=== PATIENT | male | born 1980 | race Caucasian/White ===

== ENCOUNTER 2019-04-07 16:30 | Emergency (ER) | payer BC, SELFPAY ==
[2019-04-07 17:00] VITALS: BP 143/82; PULSE 116; RESP 20; TEMP 38.4; O2SAT 98
--- NOTE | 2019-04-07 17:11 | ED.GENADULT ---
HPI - General Adult General Chief complaint: Upper Respiratory Infection Stated complaint: lower back pn/cough/sob Time Seen by Provider: 04/07/19 17:36 Source: patient and RN notes reviewed Mode of arrival: ambulatory Limitations: no limitations History of Present Illness HPI narrative: 38-year-old male presents with complaints of body aches, fever, wheezing, and sore throat for 1 day. Tylenol without little relief. High fevers, highest 101.2F, orally with intermittent chills. drooling, neck or throat swelling. Pain is bilateral. Hurts to swallow. Exacerbation factors consist of eating and drinking. Rhinorrhea and nasal congestion. No voice change. No nausea, vomiting, or abdominal pain. Tolerating liquids well. Denies chills, dyspnea, difficulty swallowing, jaw pain, dental pain, facial pain, foreign body sensation, and rash. Remains active. Some parts of this dictation were generated by voice recognition software and may contain typographical and/or grammatical inaccuracies. Related Data Home Medications Medication Instructions Recorded Confirmed meloxicam 15 mg PO DAILY 04/07/19 04/07/19 Allergies Allergy/AdvReac Type Severity Reaction Status Date / Time No Known Allergies Allergy Unknown Verified 04/07/19 17:05 Review of Systems Review of Systems: Narrative: CONSTITUTIONAL: Complains of fever, chills. Denies sweats. EYES: Denies visual changes, redness, discharge. ENT: Denies otalgia. Complains of sore throat, rhinorrhea, congestion. CARDIOVASCULAR: Denies chest pain, palpitations, edema. RESPIRATORY: Denies dyspnea. Complains of wheezing, dry cough. GASTROINTESTINAL: Denies abdominal pain, nausea, vomiting, diarrhea. GENITOURINARY: Denies dysuria, hematuria, abnormal discharge. SKIN: Denies rash or itching. MUSCULOSKELETAL: Denies acute back pain, joint pain. Complains of myalgia. NEUROLOGIC: Denies numbness or focal weakness. PSYCHIATRIC: Denies anxiety or depression. All systems reviewed & are unremarkable except as noted in HPI and below. [facility] Past Medical History Medical History ADHD (attention deficit hyperactivity disorder), inattentive type Chronic nonallergic rhinitis Chronic thoracic back pain Right lateral epicondylitis Right ureteral stone Surgical History Surgical History History of umbilical hernia repair Family History Family History Mother Family history of osteoporosis Hypertension Father Family history of attention deficit hyperactivity disorder (ADHD) Social History Social History Smoking status: Never smoker Second hand tobacco smoke exposure: No Alcohol intake: never Gender identity (if verbalized by the patient): Male Comments At time of signature, agree with nurse past medical, surgical, social, and family history. There is no relevant family history pertinent to the presenting complaint. Exam Narrative: Exam Narrative: GENERAL: This is a well-nourished, well-developed patient, in no apparent distress. Speaks in full sentences without deficits and ambulates with steady gait without dyspnea. HEAD: normocephalic, atraumatic. EYES: PERRL. Sclera clear/white. Vision is grossly intact. EARS: External ears normal, auditory canals clear and without drainage, TMs normal without perforation. Hearing grossly intact. NOSE: External nose normal with no obvious nasal discharge, nares with moderate redness and enlarge turbinates, no rhinorrhea. Mouth: moist mucous membranes. THROAT: Mucous membranes moist, posterior pharynx with moderate erythema, no exudatel, +1 tonsils, no drainage, no concern for Peritonsillar abscess. No drooling, trismus, or neck swelling. NECK: Neck supple, non-tender without lymphadenopathy, masses or thyromegaly.
[2019-04-07] MEDS: IBUPROFEN 400 MG TABLET 800 MG PO (17:34)
[2019-04-07 18:01] VITALS: TEMP 38.3
== END 2019-04-07 17:59 | disposition home or self-care (01) ==
PROVIDERS: Emergency Provider Nurse Practitioner Family; PCP Family Medicine
DX: J02.0 Streptococcal pharyngitis (principal)
CPT/HCPCS: 87804; 87880; 99213; A9270; G0463

== ENCOUNTER 2019-12-04 07:53 | Outpatient (CLI) | payer BC, SELFPAY ==
--- NOTE | 2019-12-24 14:50 | WPDHOMESLEEP ---
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 Sleep History Papo Faustin is a 39 tear-old male with ADHD who has been using Ambien for years to improve sleep quality. He does not take it currently. He has work schedule changes that worsen his quality of sleep. He wakes up during the night and has excessive daytime sleepiness. He constantly snores and it is always loud enough that others complain about it. He occasionally awakens at night with heartburn, belching or coughing. He does not awaken from sleep feeling short of breath. He constantly has trouble sleeping with a cold. He does not wake up gasping for breath at night. He frequently has breathing problems at night reported to him by others, occasionally sweats excessively at night, rarely feels his heart beating or pounding irregularly at night and rarely falls asleep during the day. He does not fall asleep involuntarily or while driving. He does not fall asleep during physical effort. He does not have loss of muscle tone with strong emotion. He occasionally has daytime difficulties due to excessive sleepiness. He rarely feels paralyzed on waking or falling asleep. He occasionally has vivid dreamlike scenes upon awakening or falling asleep. He has never for a to go to sleep. He denies nightmares. He occasionally remembers his dreams. He rarely has racing thoughts. He does not have feelings of sadness, depression or anxiety. He denies muscular tension, does not notice parts of his body jerking and he does not kick at night. He occasionally has crawling and aching feelings in his legs. He rarely has leg pain at night. He denies morning jaw pain and denies grinding his teeth during sleep. He constantly is bothered by pain during the day. Never is awakened by pain at night. He constantly wakes up feeling stiff in the morning with sore achy muscles and pain in the neck and spine. He has fatigue, headaches and memory problems. He has a family history of sleep issues with his father also has excessive daytime sleepiness. Normal bedtime is 10:30 p.m. falling asleep within 20-30 minutes, waking 2-3 times during the night. While awake he uses the bathroom. He returns to sleep within a few minutes and wakes in the morning at 6:45 a.m.. He estimates that he normally has 6-7 hours of sleep at night. On the weekends goes to bed an hour later and wakes about an hour later. He does not take naps. Naps are not refreshing. He is drowsy in the morning for 1 hour or longer. Habits: Never smoked tobacco. Caffeine 1 serving per day. No alcohol or recreational drugs. [facility] Past Medical History Medical History ADHD (attention deficit hyperactivity disorder), inattentive type Chronic nonallergic rhinitis Chronic thoracic back pain Encounter for screening for other viral diseases Oral candidiasis Right lateral epicondylitis Right ureteral stone Surgical History Surgical History History of umbilical hernia repair Family History Family History Mother Family history of osteoporosis Hypertension Father Family history of attention deficit hyperactivity disorder (ADHD) Social History Social History Smoking status: Never smoker Second hand tobacco smoke exposure: No Alcohol intake: never Gender identity (if verbalized by the patient): Male Medications Home Medications Medication Instructions Recorded C
== END 2019-12-04 07:54 | disposition home or self-care (01) ==
LOC: ANHCSM 07:54
PROVIDERS: PCP Family Medicine; Visit Provider Family Medicine
DX: G47.10 Hypersomnia, unspecified (principal); G47.33 Obstructive sleep apnea (adult) (pediatric)
CPT/HCPCS: 95800

== ENCOUNTER 2020-02-18 20:33 | Emergency (ER) | payer BC, SELFPAY ==
--- NOTE | ~2020-02-18 | CT_ITS ---
EXAMINATION: CT abdomen pelvis wo con DATE: 02/18/2020 21:10 INDICATION: Renal stone. Left flank pain. TECHNIQUE: Computed tomography (CT) of the abdomen and pelvis was performed without intravenous contr ast. Automated exposure control and iterative reconstruction technique were employed. The dose-length product was 1484.42 mGy-cm. COMPARISON: 06/27/2015 FINDINGS: Lung bases are clear. Heart size is normal. No pericardial or pleural effusion. Liver, gallbladder, s pleen, pancreas, right adrenal gland and right kidney are normal. 2.5 cm low-attenuation left adrenal adenoma. 2 mm obstructing stone at the left ureterovesicular junction with mild left hydroureteronep hrosis. There is mild colonic diverticulosis with a sigmoid predominance. There is no adjacent infla mmatory change to suggest diverticulitis. Small bowel and appendix are normal. Decompressed bladder is unremarkable. No free intraperitoneal gas or fluid. No pathologically enlarged abdominal or pelvic lymphadenopathy. Mild thoracolumbar spondylosis. A few small bone islands in the pelvis and proximal femurs. IMPRESSION: 1. 2 mm stone at the left ureterovesicular junction with mild left hydroureteronephrosis. Reviewed, dictated and finalized at location A. [employer] IMPRESSION: 1. 2 mm stone at the left ureterovesicular junction with mild left hydrouretero nephrosis.
[2020-02-18 20:37] VITALS: BP 139/87; PULSE 84; RESP 16; TEMP 36.6; O2SAT 96
[2020-02-18 20:53] LABS: Basophils Absolute Auto 0.1 K/mm3 (0.0-0.1); Basophils Percent Auto 0.8 % (0.2-1.2); Eosinophils Absolute Auto 0.1 K/mm3 (0-0.3); Eosinophils Percent Auto 0.9 % (0-4.4); Hematocrit 42.1 % (42.0-52.0); Hemoglobin 14.4 g/dL (14.0-18.0); Immature Granulocyte Absolute 0.05 K/mm3 (0.00-0.031); Immature Granulocyte Percent A 0.4 % (0-0.5); Lymphocytes Absolute Auto 4.61 K/mm3 (0.9-3.2); Lymphocytes Percent Auto 40.6 % (18.3-44.2); Mean Corpuscular HGB Conc 34.2 g/dl (32-36); Mean Corpuscular Hemoglobin 29.7 pg (26-34); Mean Corpuscular Volume 86.8 fl (80-100); Mean Platelet Volume 9.7 fl (7.4-10.4); Monocytes Absolute Auto 0.6 K/mm3 (0.1-0.6); Monocytes Percent Auto 5.5 % (2.6-8.5); Neutrophils Absolute Auto 5.9 K/mm3 (1.3-6.7); Neutrophils Percent Auto 51.8 % (45.5-73.1); Platelet Count Result 429 k/mm3 (150-375); Red Blood Count 4.85 M/mm3 (4.6-6.20); Red Cell Distribution Width 13.1 % (11.5-14.5); White Blood Count 11.4 K/mm3 (4.5-10.0)
[2020-02-18 21:04] LABS: Anion Gap 6 mmol/L (8-16); Blood Urea Nitrogen 32 mg/dL (9-20); Carbon Dioxide 31 mmol/L (22-30); Chloride 102 mmol/L (98-107); Estimated CRCL calculation 71 ml/min; Estimated Glomerular Filt Rate 46; Glucose 119 mg/dL (75-110); Potassium 4.1 mmol/L (3.4-5.0); Sodium 139 mmol/L (137-145)
[2020-02-18] MEDS: HYDROmorphone HCL INJ (*CRX) 1 MG/ML SYR IV PUSH ×2 (21:19→23:09)
[2020-02-18] MEDS: SODIUM CHLORIDE 0.9% IV 1,000 ML 999 ML ×2 (21:19→22:33)
[2020-02-18] MEDS: ONDANSETRON INJ 4 MG/2 ML VIAL IV PUSH (21:19)
[2020-02-18] MEDS: KETOROLAC 30 MG/ML VIAL (*BKC) (22:00)
--- NOTE | 2020-02-18 22:00 | PC.NURSE ---
[place] to give pt toradol 30 mg ivp x1 from dr tao
[2020-02-18] MEDS: HYDROmorphone HCL INJ (*CRX) 1 MG/ML SYR (22:33)
--- NOTE | 2020-02-18 22:33 | PC.NURSE ---
shay to give pt dilaudid 1mg ivp x1 and also NS 1L X1 BOTH FROM DR VALERO
[2020-02-18 22:49] LABS: Add Urine Microscopic? YES; Appearance Urine Clear (Clear); Bilirubin Urine Negative (Negative); Blood Urine 3+ (Negative); Color Urine Yellow (Yellow); Glucose Urine UA Negative (Negative); Ketones Urine Negative (Negative); Leukocyte Esterase Ur Negative LEU/UL (Negative); Mucus Urine Few /lpf; Nitrate Urine Negative (Negative); Protein Urine 1+ mg/dL (Negative); RBC Urine >75 /hpf (0-2); Specific Grav Ur 1.027 (1.001-1.035); Squamous Epithelial Cell Urine Rare /hpf (Few); Urobilinogen Urine Negative mg/dL (<2.0); WBC Urine 0-3 /hpf
[2020-02-18] MEDS: LORazepam INJ (*CRX) 2 MG/ML VIAL 0.5 MG IV PUSH (23:09)
--- NOTE | 2020-02-18 23:24 | ED.ABDPAIN ---
HPI - Abdominal Pain General Chief Complaint: Urogenital-Male Stated Complaint: I might have a kidney stone Left flank pain Time Seen by Provider: 02/18/20 20:51 Source: patient and family Mode of arrival: ambulatory Limitations: no limitations History of Present Illness HPI narrative: 39-year-old with a history of kidney stones here with complaints of left flank pain since last few hours. Patient states that pain is going down to his lower abdomen. Also complains of nausea but no significant vomiting. No history of fever or chills. MD elicited complaint: abdominal pain and flank pain Pertinent past history: kidney stones Onset (ago): hour(s) (2) Pain Consistency: constant Location: L flank and suprapubic Severity: moderate Quality: stabbing and sharp Radiation: suprapubic Exacerbating factors: nothing Relieving factors: nothing Related Data Allergies Allergy/AdvReac Type Severity Reaction Status Date / Time No Known Allergies Allergy Unknown Verified 04/07/19 17:05 Review of Systems Review of Systems: All systems reviewed & are unremarkable except as noted in HPI and below Constitutional: Constitutional: Reports no additional constitutional complaints Eyes: Eyes: Reports no additional eye complaints ENT: Reports system reviewed and no additional complaints, except as documented Cardiovascular: Cardiovascular: Reports no additional cardiovascular complaints Respiratory: Respiratory: Reports no additional respiratory complaints Gastrointestinal: Gastrointestinal: Reports as per HPI Genitourinary: Genitourinary: Reports as per HPI Musculoskeletal: Musculoskeletal: Reports no additional musculoskeletal complaints PMFSH Past Medical History Medical History ADHD (attention deficit hyperactivity disorder), inattentive type BMI 32.0-32.9,adult Chronic nonallergic rhinitis Chronic right shoulder pain Chronic thoracic back pain COVID-19 (01/02/20) Encounter for screening for other viral diseases Migraine headache without aura Obesity, unspecified (07/21/16) Oral candidiasis Right lateral epicondylitis Right ureteral stone Surgical History Surgical History History of umbilical hernia repair Family History Family History Mother Family history of osteoporosis Hypertension Father Family history of attention deficit hyperactivity disorder (ADHD) Social History Social History Smoking status: Never smoker Second hand tobacco smoke exposure: No Alcohol intake: never Gender identity (if verbalized by the patient): Male Exam Narrative: Exam Narrative: GENERAL: Well-appearing, well-nourished, and in mild distresssec to pain HEAD: Normocephalic, atraumatic. EYES: PERRLA and EOMI.. NECK: Supple. CHEST: Clear to auscultation. No respiratory distress. HEART: Regular rate and rhythm. No murmur heard. Normal peripheral pulses. ABDOMEN: Soft, nontender, nondistended, normal active bowel sounds. EXTREMITIES: Normal range of motion. No edema. SKIN: Warm, dry, no rash. NEURO: No focal deficits. Alert and oriented x3. PSYCH: Normal mood and affect. Course Course Emergency Course: Patient started feeling much better after several rounds of pain medication and Ativan. I have discussed the labs and CT findings with the patient and his . Advised him to drink plenty of fluids take pain medication as prescribed, follow-up with his primary doctor or urologist if symptoms do recur. Vital Signs Vital signs: Vital Signs Temperature 36.6 C 02/18/20 20:37 Pulse Rate 84 02/18/20 20:37 Respiratory Rate 16 02/18/20 20:37 Blood Pressure 139/87 02/18/20 20:37 Pulse Oximetry 96 02/18/20 20:37 Temperature 36.6 C 02/18/20 20:37 Pulse Rate 84 02/18/20 20:37 Respiratory Rate 1
[2020-02-18 23:53] VITALS: BP 130/81; PULSE 81; RESP 16; O2SAT 100
== END 2020-02-18 23:56 | disposition home or self-care (01) ==
PROVIDERS: Emergency Medicine; Emergency Provider Family Medicine; PCP Family Medicine
DX: N13.2 Hydronephrosis with renal and ureteral calculous obstruction (principal); Z86.16 Personal history of COVID-19; E66.9 Obesity, unspecified; Z68.32 Body mass index [BMI] 32.0-32.9, adult
CPT/HCPCS: 36415; 74176; 80048; 81001; 85025; 96361; 96374; 96375; 96376; 99284; J1170; J1885; J2060; J2405; J7030

== ENCOUNTER 2021-01-03 10:27 | Emergency (ER) | payer BC, SELFPAY ==
--- NOTE | ~2021-01-03 | US_ITS ---
EXAMINATION: US right upper quadrant EXAM DATE: 01/03/2021 13:15 INDICATION: Abdominal pain, right upper quadrant pain. TECHNIQUE: Multiple grayscale and Doppler images of the abdomen right upper quadrant were obtained (b y a technologist who performed the scan) and subsequently reviewed. There is no prior study for brenda overton. FINDINGS: The pancreatic head and body are normal in appearance. The pancreatic tail is not visualized. The l iver has normal echogenicity and contour. There are no focal liver lesions identified. There is no evidence of intrahepatic biliary duct dilation. Portal venous flow was seen in the hepatopedal, nor mal direction and has normal Doppler waveform. No right-sided hydronephrosis. Common bile duct measures 4 mm, which is normal. The gallbladder wall is normal in thickness, with ex pected amount of distention. No sonographic evidence of pericholecystic fluid. There is no cholelit hiases. Technologist performing exam reports patient did not demonstrate sonographic Mejia's sign. Please note that this sign is less reliable in patients who have received pain medication. IMPRESSION: 1. Unremarkable abdominal ultrasound exam. Reviewed, dictated and finalized at location A. SEWER
[2021-01-03 11:28] VITALS: BP 140/89; PULSE 104; RESP 17; TEMP 36.6; O2SAT 99
[2021-01-03 11:45] LABS: Basophils Absolute Auto 0.1 K/mm3 (0.0-0.1); Basophils Percent Auto 0.5 % (0.2-1.2); Eosinophils Percent Auto 0.4 % (0-4.4); Hematocrit 45.4 % (42.0-52.0); Hemoglobin 15.3 g/dL (14.0-18.0); Immature Granulocyte Absolute 0.02 K/mm3 (0.00-0.031); Immature Granulocyte Percent A 0.2 % (0-0.5); Lymphocytes Absolute Auto 2.34 K/mm3 (0.9-3.2); Lymphocytes Percent Auto 25.5 % (18.3-44.2); Mean Corpuscular HGB Conc 33.7 g/dl (32-36); Mean Platelet Volume 9.5 fl (7.4-10.4); Monocytes Absolute Auto 0.5 K/mm3 (0.1-0.6); Monocytes Percent Auto 5.9 % (2.6-8.5); Neutrophils Absolute Auto 6.2 K/mm3 (1.3-6.7); Neutrophils Percent Auto 67.5 % (45.5-73.1); Platelet Count Result 315 k/mm3 (150-375); White Blood Count 9.2 K/mm3 (4.5-10.0)
[2021-01-03 11:55] LABS: Add Urine Microscopic? YES; Appearance Urine Clear (Clear); Bilirubin Urine Negative (Negative); Blood Urine 1+ (Negative); Color Urine Yellow (Yellow); Glucose Urine UA Negative (Negative); Ketones Urine Negative (Negative); Leukocyte Esterase Ur Negative LEU/UL (Negative); Mucus Urine Rare /lpf; Nitrate Urine Negative (Negative); Protein Urine Negative (Negative); RBC Urine 0-2 /hpf (0-2); Urobilinogen Urine Negative mg/dL (<2.0)
[2021-01-03 11:57] LABS: Alanine Aminotransferase 38 U/L (4-50); Albumin Level 4.4 g/dL (3.5-5.1); Alkaline Phosphatase 55 U/L (38-126); Anion Gap 7 mmol/L (8-16); Aspartate Amino Transferase 32 U/L (17-59); Bilirubin,Total 0.3 mg/dL (0.2-1.3); Blood Urea Nitrogen 14 mg/dL (9-20); Calcium 9.3 mg/dL (8.4-10.2); Carbon Dioxide 28 mmol/L (22-30); Chloride 99 mmol/L (98-107); Estimated CRCL calculation 114 ml/min; Estimated Glomerular Filt Rate > 60; Glucose 95 mg/dL (65-110); Lipase 34 U/L (23-300); Potassium 4.1 mmol/L (3.4-5.0); Sodium 134 mmol/L (137-145)
--- NOTE | 2021-01-03 13:35 | ED.GENADULT ---
HPI - General Adult General Chief complaint: Abdominal Pain Stated complaint: Lowerback/abdominal pain. Time Seen by Provider: 01/03/21 12:04 History of Present Illness HPI narrative: Patient is a 40-year-old male who presents the ER with abdominal pain. Ongoing for last couple days. Bloating and cramping. Worse with eating. Reports he has lost stomach acid that goes up into his chest. Occasionally has nausea but no vomiting. Reports he has history of kidney stones and he thought it may be related to stones however the symptoms are not nearly as intense as his kidney stone discomfort. He does report some mid low back discomfort associated with this. No recent injury. No relief with ibuprofen. Related Data Allergies Allergy/AdvReac Type Severity Reaction Status Date / Time No Known Allergies Allergy Unknown Verified 04/07/19 17:05 Review of Systems Review of Systems: All systems reviewed & are unremarkable except as noted in HPI and below Constitutional: Constitutional: Denies chills, Denies fever(s) and Denies weakness ENT: Denies nasal congestion and Denies sore throat Cardiovascular: Cardiovascular: Denies chest pain, Denies rapid heart rate and Denies radiating jaw, neck or arm pain Gastrointestinal: Gastrointestinal: Reports abdominal pain, Reports bloating, Reports heartburn, Reports nausea and Denies vomiting Genitourinary: Genitourinary: Denies hematuria, Denies dysuria and Denies urinary frequency [facility] Past Medical History Medical History (Updated 01/03/21 @ 13:39 by Orlin Arceo MD) Abnormal fasting glucose ADHD (attention deficit hyperactivity disorder), inattentive type BMI 31.0-31.9,adult BMI 32.0-32.9,adult Chronic anxiety (~09/2020) Chronic nonallergic rhinitis Chronic right shoulder pain Chronic thoracic back pain COVID-19 (01/02/20) Encounter for screening for other viral diseases Leukocytosis Migraine headache without aura Obesity, unspecified (07/21/16) Oral candidiasis Renal insufficiency Right lateral epicondylitis Ureteral stone Surgical History Surgical History History of umbilical hernia repair Family History Family History Mother Family history of osteoporosis Hypertension Father Family history of attention deficit hyperactivity disorder (ADHD) Social History Social History Smoking status: Never smoker Second hand tobacco smoke exposure: No Alcohol intake: never Gender identity (if verbalized by the patient): Male Exam Narrative: GENERAL: Well-appearing, well-nourished, and in no acute distress. HEAD: Normocephalic, atraumatic. CHEST: Clear to auscultation. No respiratory distress. HEART: Regular rate and rhythm. Normal peripheral pulses. ABDOMEN: Soft, nontender, nondistended. No CVA tenderness. EXTREMITIES: Normal range of motion. No edema. SKIN: Warm, dry, no rash. NEURO: Alert and oriented x3. PSYCH: Normal mood and affect. Course Course Emergency Course: Exam benign. Labs unremarkable. No cholelithiasis. Will treat as peptic ulcer with Protonix 40 mg twice daily x14 days. Recommend follow-up with PCP and possible referral to GI if symptoms persist. Vital Signs Vital signs: Vital Signs Temperature 97.8 F 01/03/21 11:28 Pulse Rate 104 H 01/03/21 11:28 Respiratory Rate 17 01/03/21 11:28 Blood Pressure 140/89 01/03/21 11:28 Pulse Oximetry 99 01/03/21 11:28 Temperature 97.8 F 01/03/21 11:28 Pulse Rate 104 H 01/03/21 11:28 Respiratory Rate 17 01/03/21 11:28 Blood Pressure 140/89 01/03/21 11:28 Pulse Oximetry 99 01/03/21 11:28 Medical Decision Making Vital Signs Vital Signs: Vital Signs Temperature 97.8 F 01/03/21 11:28 Pulse Rate 104 H 01/03/21 11:28 Respiratory Rate 17 01/03/21 11:28 Blood Pressure 140/89 01/03/21 11:28 Puls
[2021-01-03 13:53] VITALS: BP 126/84; PULSE 98; RESP 18; O2SAT 98
== END 2021-01-03 13:55 | disposition home or self-care (01) ==
PROVIDERS: Emergency Medicine; Emergency Provider Emergency Medicine; PCP Family Medicine
DX: R10.13 Epigastric pain (principal); Z86.16 Personal history of COVID-19; N28.9 Disorder of kidney and ureter, unspecified; F90.9 Attention-deficit hyperactivity disorder, unspecified type; F41.9 Anxiety disorder, unspecified; E66.9 Obesity, unspecified; Z68.31 Body mass index [BMI] 31.0-31.9, adult; Z87.442 Personal history of urinary calculi
CPT/HCPCS: 36415; 76705; 80053; 81001; 83690; 85025; 99284

== ENCOUNTER → 2021-04-05 02:04 | Outpatient (CLI) | payer BC, SELFPAY ==
[2021-04-05 14:41] LABS: SARS-CoV-2 RNA PCR Negative
== END ==
PROVIDERS: PCP Family Medicine; Visit Provider Internal Medicine Gastroenterology
DX: Z01.812 Encounter for preprocedural laboratory examination (principal); Z20.822 Contact with and (suspected) exposure to COVID-19
CPT/HCPCS: C9803; U0003; U0005

== ENCOUNTER 2021-04-08 02:29 | Day surgery (SDC) | payer BC, SELFPAY ==
[2021-03-31 08:30] VITALS: BMI 30.8
--- NOTE | 2021-04-07 13:45 | WPDANESEPP ---
Anes - Eval Pre Procedure Procedure: Operation Date: 04/08/21 10:30 Proposed Procedures p Esophagogastroduodenoscopy - Dread Gold MD Date/Time: 04/07/21 13:45 Pre Op Diagnosis: GERD Patient Data Age: 40 Gender: M Height: 1.88 m Weight: 109 kg Allergies Allergy/AdvReac Type Severity Reaction Status Date / Time No Known Allergies Allergy Unknown Verified 03/31/21 08:32 Home Medications Medication Instructions Recorded Confirmed Type alprazolam 0.25 mg tablet 0.25 mg PO TID PRN #60 tablet 03/04/21 03/31/21 Rx omeprazole 20 mg tablet,delayed 20 mg PO DAILY 03/22/21 03/31/21 History release dextroamphetamine-amphetamine ER 30 mg PO QAM #30 cap 03/31/21 03/31/21 Rx 30 mg 24hr capsule,extend release Patient hx anesthesia problems: none Family hx anesthesia problems: none Results Review: All pre-operative results and documents have been reviewed as part of the pre-operative evaluation. [facility] Past Medical History Medical History (Updated 04/07/21 @ 13:45 by Raul Stanton DO) Abdominal pain Abnormal fasting glucose ADHD (attention deficit hyperactivity disorder), inattentive type BMI 31.0-31.9,adult BMI 32.0-32.9,adult BMI 33.0-33.9,adult Chronic anxiety (~09/2020) Chronic nonallergic rhinitis Chronic right shoulder pain Chronic thoracic back pain COVID-19 (01/02/20) Encounter for screening for other viral diseases GERD (gastroesophageal reflux disease) Hot tub folliculitis Leukocytosis Migraine headache without aura Obesity, unspecified (07/21/16) Oral candidiasis KYLE (obstructive sleep apnea) Renal insufficiency Right lateral epicondylitis Tenderness of lymph node Ureteral stone Surgical History Surgical History History of umbilical hernia repair Family History Family History Mother Family history of osteoporosis Hypertension Father Family history of attention deficit hyperactivity disorder (ADHD) Social History Social History Smoking status: Never smoker Second hand tobacco smoke exposure: No Alcohol intake: current Substance use: never Substance use type: does not use Gender identity (if verbalized by the patient): Male Spiritual care concerns: No Exam Day of Procedure 04/07/21 13:45
[2021-04-08 10:12] VITALS: BP 142/81; PULSE 71; RESP 18; TEMP 35.9; O2SAT 100; BMI 31.6
[2021-04-08] MEDS: LACTATED RINGERS 1,000 ML 150 ML IV CONT (10:15)
--- NOTE | 2021-04-08 10:39 | WPDANESEFPP ---
Anes - Eval Final PreProcedure Day of Procedure 04/08/21 10:39 Patient weight: obese Heart: regular rate and rhythm Lungs: clear to auscultation Airway: Mallampati scale class II Neurological: alert and oriented Last oral intake: >/= 8 hours ASA classification: III Emergent: no Anesthetic plan: proceed Anesthesia type and monitoring: general GIVS and standard monitoring Results Review: All pre-operative results and documents have been reviewed as part of the pre-operative evaluation. Informed Consent: The patient's anesthetic plan and its attendant risks and benefits were discussed with the patient/family/POA. Questions were solicited and answers provided to the satisfaction of the patient/family/POA.
--- NOTE | 2021-04-08 10:40 | PM.HPGS ---
History of Present Illness History of Present Illness Consent: Risks, benefits, and alternatives have been discussed and questions answered. Patient agrees to proceed with procedure. Chief complaint: GERD Narrative: Papo Faustin is a 40 year old male with dyspepsia and gerd using omeprazole otc, never had egd. No new issues since his last office visit. Review of Systems Constitutional: Constitutional: Denies headache(s) and Denies weakness Eyes: Eyes: Denies blurry vision ENT: Reports Normal hearing present, Denies headache(s) and Denies neck pain Cardiovascular: Cardiovascular: Denies chest pain and Denies dyspnea Respiratory: Respiratory: Denies dyspnea Gastrointestinal: Gastrointestinal: Reports no additional gastrointestinal complaints Genitourinary: Genitourinary: Denies dysuria Musculoskeletal: Musculoskeletal: Denies neck pain Integumentary/Breasts: Skin/Breast: Denies dry skin Neurologic: Reports Normal hearing present, Denies headache(s) and Denies weakness Psychiatric: Psychiatric: Denies anxiety Endocrine: Endocrine: Denies change in body appearance Hematologic/Lymphatic: Hematologic/Lymphatic: Denies easy bleeding Allergic/Immunologic: Allergic/Immunologic: Denies urticaria PMFSH Past Medical History Medical History (Updated 04/07/21 @ 13:45 by Raul Stanton DO) Abdominal pain Abnormal fasting glucose ADHD (attention deficit hyperactivity disorder), inattentive type BMI 31.0-31.9,adult BMI 32.0-32.9,adult BMI 33.0-33.9,adult Chronic anxiety (~09/2020) Chronic nonallergic rhinitis Chronic right shoulder pain Chronic thoracic back pain COVID-19 (01/02/20) Encounter for screening for other viral diseases GERD (gastroesophageal reflux disease) Hot tub folliculitis Leukocytosis Migraine headache without aura Obesity, unspecified (07/21/16) Oral candidiasis KYLE (obstructive sleep apnea) Renal insufficiency Right lateral epicondylitis Tenderness of lymph node Ureteral stone Surgical History Surgical History History of umbilical hernia repair Family History Family History Mother Family history of osteoporosis Hypertension Father Family history of attention deficit hyperactivity disorder (ADHD) Social History Social History Smoking status: Never smoker Second hand tobacco smoke exposure: No Alcohol intake: never Substance use: never Substance use type: does not use Living arrangements: with family Gender identity (if verbalized by the patient): Male Spiritual care concerns: No Meds Home Medications and Allergies Home Medications Medication Instructions Recorded Confirmed Type alprazolam 0.25 mg tablet 0.25 mg PO TID PRN #60 tablet 03/04/21 03/31/21 Rx omeprazole 20 mg tablet,delayed 20 mg PO DAILY 03/22/21 03/31/21 History release dextroamphetamine-amphetamine ER 30 mg PO QAM #30 cap 03/31/21 03/31/21 Rx 30 mg 24hr capsule,extend release Allergies Allergy/AdvReac Type Severity Reaction Status Date / Time No Known Allergies Allergy Unknown Verified 04/08/21 10:10 Vital Signs Vital Signs - 24 hr 04/08/21 10:12 Temperature 96.7 F L Pulse Rate 71 Respiratory Rate 18 Blood Pressure 142/81 H Pulse Oximetry 100 Exam Const: General: comfortable and no acute distress HENMT: General nose exam: Normal nares present Eyes: General: appearance normal, both eyes and all related structures Neck: Neck: no JVD Resp: Auscultation: clear to auscultation bilaterally Cardio: Rate: regular rate Rhythm: regular rhythm GI: Inspection: non-distended GI Palp: Yes Soft to palpation Skin: General skin exam: normal color Neuro: General: gait normal Speech: normal speech Extrem: General: normal to inspection Psych: Mental Status: mental status gr
[2021-04-08 10:56] VITALS: BP 109/70; PULSE 80; RESP 23; O2SAT 97
[2021-04-08 11:06] VITALS: BP 110/67; PULSE 69; RESP 20; O2SAT 97
[2021-04-08 11:16] VITALS: BP 105/70; PULSE 75; RESP 20; O2SAT 98
== END 2021-04-08 11:26 | disposition home or self-care (01) ==
PROVIDERS: PCP Family Medicine; Visit Provider Internal Medicine Gastroenterology
PROC: 0DJ08ZZ Inspection of Upper Intestinal Tract, Via Natural or Artificial Opening Endoscopic (ICD-10-PCS; CPT 43235; principal; 2021-04-08 10:30)
DX: K21.00 Gastro-esophageal reflux disease with esophagitis, without bleeding (principal); K22.70 Barrett's esophagus without dysplasia; K30 Functional dyspepsia; F90.9 Attention-deficit hyperactivity disorder, unspecified type; F41.9 Anxiety disorder, unspecified; Z86.16 Personal history of COVID-19; G47.33 Obstructive sleep apnea (adult) (pediatric); R73.09 Other abnormal glucose; D72.829 Elevated white blood cell count, unspecified; N28.9 Disorder of kidney and ureter, unspecified; R10.9 Unspecified abdominal pain; E66.9 Obesity, unspecified; Z68.31 Body mass index [BMI] 31.0-31.9, adult; M54.6 Pain in thoracic spine
CPT/HCPCS: 43239; 88305; J2001; J2704; J7120

== ENCOUNTER 2021-04-23 14:16 | Emergency (ER) | payer BC, SELFPAY ==
--- NOTE | 2021-04-23 14:26 | ED.GENADULT ---
HPI - General Adult General Chief complaint: Upper Respiratory Infection Stated complaint: cold symptoms Time Seen by Provider: 04/23/21 14:26 Source: patient Mode of arrival: ambulatory Limitations: no limitations History of Present Illness HPI narrative: 32-year-old male patient presents to the [facility] with complaints of cold symptoms that started yesterday. Denies any fever states he has had a little bit of a scratchy throat. Body aches. Patient states a slight cough. Patient states he did and at home strep test 1 came back +1 came back negative. Patient states he had issues a couple years ago where he got strep 5 or 6 times in a row. Patient is not vaccinated against COVID. Patient states he last was diagnosed with COVID around . Denies taking a rapid Covid test. Related Data Allergies Allergy/AdvReac Type Severity Reaction Status Date / Time No Known Allergies Allergy Unknown Verified 04/23/21 14:46 Review of Systems Review of Systems: CONSTITUTIONAL: Denies fever, chills, or sweats. Positive body aches EYES: Denies visual changes, redness, or discharge. ENT: Denies rhinorrhea, congestion, positive mild sore throat, or otalgia. CARDIOVASCULAR: Denies chest pain, palpitations, or edema. RESPIRATORY: Positive cough or dyspnea. GASTROINTESTINAL: Denies abdominal pain, nausea, vomiting, or diarrhea. GENITOURINARY: Denies dysuria or hematuria. SKIN: Denies rash or itching. MUSCULOSKELETAL: Denies back pain, joint pain, or myalgia. NEUROLOGIC: Denies headache, numbness, or weakness. PSYCHIATRIC: Denies anxiety or depression. [facility] Past Medical History Medical History Abdominal pain Abnormal fasting glucose ADHD (attention deficit hyperactivity disorder), inattentive type BMI 31.0-31.9,adult BMI 32.0-32.9,adult BMI 33.0-33.9,adult Chronic anxiety (~09/2020) Chronic nonallergic rhinitis Chronic right shoulder pain Chronic thoracic back pain COVID-19 (01/02/20) Encounter for screening for other viral diseases GERD with esophagitis EGD on 04/08/2021 reveals esophagitis with possible Wilkins's with biopsies pending, gastritis. Repeat EGD in 1 year, Dr. Rayo Hot tub folliculitis Leukocytosis Migraine headache without aura Obesity, unspecified (07/21/16) Oral candidiasis KYLE (obstructive sleep apnea) Renal insufficiency Right lateral epicondylitis Tenderness of lymph node Ureteral stone Surgical History Surgical History History of umbilical hernia repair Family History Family History Mother Family history of osteoporosis Hypertension Father Family history of attention deficit hyperactivity disorder (ADHD) Social History Social History Smoking status: Never smoker Second hand tobacco smoke exposure: No Alcohol intake: never Substance use: never Substance use type: does not use Gender identity (if verbalized by the patient): Male Spiritual care concerns: No Comments At the time of my signature I agree with nursing past medical history, surgical, social, and family history. There is no relevant family history pertinent to the presenting complaint. Exam Narrative: GENERAL: Well-appearing, well-nourished, and in no acute distress. HEAD: Normocephalic, atraumatic. EYES: PERRLA and EOMI. ENT: Nares with erythema edema noted bilaterally, no rhinorrhea or epistaxis. Mucous membranes moist. Posterior pharynx with slight erythema but no tonsillar lodgment, no exudates or lesions present. Bilateral TMs are clear no erythema or foreign bodies in the canal. NECK: Supple. No lymphadenopathy CHEST: Clear to auscultation. No respiratory distress. HEART: Regular rate and rhythm. No murmur heard. Normal peripheral pulses. ABDOMEN: Soft, nontender, nondistended, normal ac
[2021-04-23 14:35] VITALS: BP 136/84; PULSE 98; RESP 18; TEMP 36.7; O2SAT 100
[2021-04-24 19:01] LABS: SARS-CoV-2 RNA PCR Negative
== END 2021-04-23 15:22 | disposition home or self-care (01) ==
PROVIDERS: Emergency Provider Nurse Practitioner Family; PCP Family Medicine
DX: J06.9 Acute upper respiratory infection, unspecified (principal); Z20.822 Contact with and (suspected) exposure to COVID-19; K21.00 Gastro-esophageal reflux disease with esophagitis, without bleeding; E66.9 Obesity, unspecified; Z68.31 Body mass index [BMI] 31.0-31.9, adult; G47.33 Obstructive sleep apnea (adult) (pediatric); Z86.16 Personal history of COVID-19; F90.9 Attention-deficit hyperactivity disorder, unspecified type
CPT/HCPCS: 87081; 87804; 87880; 99213; C9803; G0463; U0003; U0005

== ENCOUNTER 2021-04-26 14:30 | Emergency (ER) | payer BC, SELFPAY ==
--- NOTE | ~2021-04-26 | XR_ITS ---
EXAMINATION: XR chest 2V DATE: 04/26/2021 15:38 INDICATION: Cough TECHNIQUE: PA and lateral views of the chest are obtained. COMPARISON: None available FINDINGS: The lungs are free of acute opacities. There is no pleural effusion or pneumothorax. The ca rdiomediastinal silhouette is normal. There is mild thoracic spondylosis. IMPRESSION: 1. No acute cardiopulmonary abnormality. Reviewed, dictated and finalized at location B.
--- NOTE | 2021-04-26 14:41 | ED.URI ---
HPI - URI/Sore Throat General Chief Complaint: Upper Respiratory Infection Stated Complaint: Chills,Cough,Body Aches,Chest Pain Time Seen by Provider: 04/26/21 15:20 Source: patient and RN notes reviewed Mode of arrival: ambulatory Limitations: no limitations History of Present Illness HPI Narrative: 40-year-old male presents with concern for 4-day history of body aches neck and back, headache, fatigue, cough. Reports he was seen over the weekend and tested negative for strep, flu, Covid. Reports however his son on the same day tested positive for flu. Reports he has been alternating Tylenol and ibuprofen. Denies other intervention. He denies shortness of breath or fever. MD elicited complaint: cough and nasal congestion Related Data Allergies Allergy/AdvReac Type Severity Reaction Status Date / Time No Known Allergies Allergy Unknown Verified 04/26/21 15:20 Review of Systems Review of Systems: CONSTITUTIONAL: Reports malaise, chills, sweats, fatigue EYES: Denies visual changes, redness, or discharge. ENT: Reports rhinorrhea, congestion, sinus pain, otalgia and sore throat. CARDIOVASCULAR: Denies chest pain, palpitations, or edema. RESPIRATORY: Reports cough. Denies dyspnea. GASTROINTESTINAL: Denies abdominal pain, nausea, vomiting, diarrhea SKIN: Denies rash or itching. MUSCULOSKELETAL: Reports myalgia. NEUROLOGIC: Denies headache. All systems reviewed & are unremarkable except as noted in HPI and below PMFSH Past Medical History Medical History Abdominal pain Abnormal fasting glucose ADHD (attention deficit hyperactivity disorder), inattentive type BMI 31.0-31.9,adult BMI 32.0-32.9,adult BMI 33.0-33.9,adult Chronic anxiety (~09/2020) Chronic nonallergic rhinitis Chronic right shoulder pain Chronic thoracic back pain COVID-19 (01/02/20) Encounter for screening for other viral diseases GERD with esophagitis EGD on 04/08/2021 reveals esophagitis with possible Wilkins's with biopsies pending, gastritis. Repeat EGD in 1 year, Dr. Rayo Hot tub folliculitis Leukocytosis Migraine headache without aura Obesity, unspecified (07/21/16) Oral candidiasis KYLE (obstructive sleep apnea) Renal insufficiency Right lateral epicondylitis Tenderness of lymph node Ureteral stone Surgical History Surgical History History of umbilical hernia repair Family History Family History Mother Family history of osteoporosis Hypertension Father Family history of attention deficit hyperactivity disorder (ADHD) Social History Social History Smoking status: Never smoker Second hand tobacco smoke exposure: No Alcohol intake: never Substance use: never Substance use type: does not use Gender identity (if verbalized by the patient): Male Spiritual care concerns: No Comments At time of signature, agree with nursing past medical, surgical, social and family history. There is no relevant family history pertinent to the presenting complaint Exam Narrative: GENERAL: nontoxic-appearing, well-nourished, and in no acute distress. HEAD: Normocephalic EYES: PERRLA, conjunctivae clear ENT: Nares clear, turbinates edematous and erythematous, clear discharge. Mucous membranes moist. TM pearly swan with dull light reflex bilaterally; no tragal tenderness. Oropharynx not erythematous without lesions. Tonsils not enlarged and without exudate, no drooling, no hoarseness, no trismus, uvula midline. NECK: Supple. No lymphadenopathy CHEST: Clear to auscultation, breath sounds equal. No wheezing, rhonchi, rales, or stridor. No respiratory distress, speaks in full sentences. HEART: Regular rate and rhythm. No murmur heard. SKIN: Warm, dry, no rash. NEURO: Alert and oriented x3. PSYCH: Normal mood and affect Course Course
[2021-04-26 14:51] VITALS: BP 139/76; PULSE 85; RESP 20; TEMP 36.1; O2SAT 98
== END 2021-04-26 16:02 | disposition home or self-care (01) ==
PROVIDERS: Emergency Provider Nurse Practitioner; PCP Family Medicine
DX: B34.9 Viral infection, unspecified (principal); K21.00 Gastro-esophageal reflux disease with esophagitis, without bleeding; G47.33 Obstructive sleep apnea (adult) (pediatric); Z86.16 Personal history of COVID-19
CPT/HCPCS: 71046; 99213; G0463

== ENCOUNTER 2022-07-11 00:29 | Day surgery (SDC) | payer BC, SELFPAY ==
[2022-07-07 15:00] VITALS: BMI 31.6
--- NOTE | 2022-07-11 09:27 | WPDANESEPPF ---
Anes - Initial Pre Proc Eval Procedure: Operation Date: 07/11/22 12:30 Proposed Procedures p Esophagogastroduodenoscopy - Dread Gold MD Date/Time: 07/11/22 09:27 Surgeon: Dread Gold MD Pre Op Diagnosis: Wilkins's Esophagus Patient Data Age: 41 Gender: M Height: 1.85 m Weight: 109 kg Allergies Allergy/AdvReac Type Severity Reaction Status Date / Time No Known Allergies Allergy Unknown Verified 07/11/22 11:14 Home Medications Medication Instructions Recorded Confirmed Type fluticasone propionate 50 1 spray intranasal BID PRN Allergy 07/07/22 07/07/22 History mcg/actuation nasal Symptoms spray,suspension (Flonase Allergy Relief) dextroamphetamine-amphetamine ER 30 mg PO QAM #30 caps 07/10/22 07/11/22 Rx 30 mg 24hr capsule,extend release (Adderall XR) pantoprazole 40 mg tablet,delayed 40 mg PO QAM #30 tabs 07/10/22 07/11/22 Rx release (Protonix) Patient hx anesthesia problems: none Family hx anesthesia problems: none Results Review: All pre-operative results and documents have been reviewed as part of the pre-operative evaluation. [facility] Past Medical History Medical History (Updated 06/29/22 @ 16:10 by Steve Heck MD) Abdominal pain Abnormal fasting glucose Fasting glucose 119 on 02/18/2020. Fasting glucose normal at 89 with hemoglobin A1c 5.3 on 08/29/2021. Glucose 78, hemoglobin A1c 5.6, with insulin 8.8 on 02/21/2022. Acute non-recurrent maxillary sinusitis Acute serous otitis media, bilateral ADHD (attention deficit hyperactivity disorder), inattentive type BMI 31.0-31.9,adult BMI 32.0-32.9,adult BMI 33.0-33.9,adult BMI 35.0-35.9,adult Chronic anxiety (~09/2020) Chronic nonallergic rhinitis Chronic right shoulder pain Chronic thoracic back pain COVID-19 (01/02/20) Elevated C-reactive protein (CRP) (02/21/22) CRP elevated at 10.1 on 02/21/2022. Elevated uric acid in blood (02/21/22) uric acid 8.1 on 02/21/2022. Encounter for screening for other viral diseases GERD with esophagitis EGD on 04/08/2021 reveals esophagitis with no Wilkins's on biopsy. Repeat EGD in 1 year, Dr. Rayo Hot tub folliculitis Leukocytosis WBC normal at 7.8 on 08/29/2021. Migraine headache without aura Obesity (BMI 30-39.9) Obesity (BMI 30.0-34.9) Obesity, unspecified (07/21/16) Oral candidiasis KYLE (obstructive sleep apnea) Pharyngitis Renal insufficiency BUN 23 with creatinine 0.97 with GFR greater than 60 on 08/29/2021. normal renal function. Right lateral epicondylitis Sebaceous cyst (~05/18/21) infected sebaceous cyst mid back Strep sore throat Tenderness of lymph node Ureteral stone Weight gain, abnormal Surgical History Surgical History History of umbilical hernia repair Family History Family History Mother Family history of osteoporosis Hypertension Father Family history of attention deficit hyperactivity disorder (ADHD) Social History Social History (Updated 02/16/22 @ 11:43 by Henny Beaver MA) Smoking status: Never smoker Second hand tobacco smoke exposure: No Alcohol intake: current Substance use: never Substance use type: does not use Lack of Transportation: No Lack of Food: Sometimes True Current Housing: I Have Housing Concerned About Future Housing: No Difficulty Paying Gas/Electric Bills: No Difficulty Paying for Meds: No Currently Unemployed: No Education: Bachelor's Degree Difficulty w/ Childcare or Family Care: No Living arrangements: with family Gender identity (if verbalized by the patient): Male Spiritual care concerns: No Anes - Eval Final PreProcedure Day of Procedure 07/11/22 09:27 Patient weight: obese Heart: regular rate and rhythm Lungs: clear to auscultation Airway: Mallampati scale class II Neurological: alert and oriented Last
[2022-07-11 11:16] VITALS: BP 139/89; PULSE 84; RESP 18; TEMP 36.4; O2SAT 99
[2022-07-11] MEDS: LACTATED RINGERS 1,000 ML 150 ML IV CONT (11:25)
--- NOTE | 2022-07-11 12:01 | PM.HPGS ---
History of Present Illness History of Present Illness Consent: Risks, benefits, and alternatives have been discussed and questions answered. Patient agrees to proceed with procedure. Chief complaint: Bauman's Esophagus Narrative: Papo Faustin is a 41 year old male with gerd better with protonix, had egd last year with salmon colored mucosa in esophagus but no bauman's, some days will have symptoms Review of Systems Constitutional: Constitutional: Denies headache(s) and Denies weakness Eyes: Eyes: Denies blurry vision ENT: Reports Normal hearing present, Denies headache(s) and Denies neck pain Cardiovascular: Cardiovascular: Denies chest pain and Denies dyspnea Respiratory: Respiratory: Denies dyspnea Gastrointestinal: Gastrointestinal: Reports no additional gastrointestinal complaints Genitourinary: Genitourinary: Denies dysuria Musculoskeletal: Musculoskeletal: Denies neck pain Integumentary/Breasts: Skin/Breast: Denies dry skin Neurologic: Reports Normal hearing present, Denies headache(s) and Denies weakness Psychiatric: Psychiatric: Denies anxiety Endocrine: Endocrine: Denies change in body appearance Hematologic/Lymphatic: Hematologic/Lymphatic: Denies easy bleeding Allergic/Immunologic: Allergic/Immunologic: Denies urticaria PMFSH Past Medical History Medical History (Updated 06/29/22 @ 16:10 by Steve Heck MD) Abdominal pain Abnormal fasting glucose Fasting glucose 119 on 02/18/2020. Fasting glucose normal at 89 with hemoglobin A1c 5.3 on 08/29/2021. Glucose 78, hemoglobin A1c 5.6, with insulin 8.8 on 02/21/2022. Acute non-recurrent maxillary sinusitis Acute serous otitis media, bilateral ADHD (attention deficit hyperactivity disorder), inattentive type BMI 31.0-31.9,adult BMI 32.0-32.9,adult BMI 33.0-33.9,adult BMI 35.0-35.9,adult Chronic anxiety (~09/2020) Chronic nonallergic rhinitis Chronic right shoulder pain Chronic thoracic back pain COVID-19 (01/02/20) Elevated C-reactive protein (CRP) (02/21/22) CRP elevated at 10.1 on 02/21/2022. Elevated uric acid in blood (02/21/22) uric acid 8.1 on 02/21/2022. Encounter for screening for other viral diseases GERD with esophagitis EGD on 04/08/2021 reveals esophagitis with no Bauman's on biopsy. Repeat EGD in 1 year, [address]. Rayo Hot tub folliculitis Leukocytosis WBC normal at 7.8 on 08/29/2021. Migraine headache without aura Obesity (BMI 30-39.9) Obesity (BMI 30.0-34.9) Obesity, unspecified (07/21/16) Oral candidiasis KYLE (obstructive sleep apnea) Pharyngitis Renal insufficiency BUN 23 with creatinine 0.97 with GFR greater than 60 on 08/29/2021. normal renal function. Right lateral epicondylitis Sebaceous cyst (~05/18/21) infected sebaceous cyst mid back Strep sore throat Tenderness of lymph node Ureteral stone Weight gain, abnormal Surgical History Surgical History History of umbilical hernia repair Family History Family History Mother Family history of osteoporosis Hypertension Father Family history of attention deficit hyperactivity disorder (ADHD) Social History Social History (Updated 02/16/22 @ 11:43 by Henny Beaver MA) Smoking status: Never smoker Second hand tobacco smoke exposure: No Alcohol intake: current Substance use: never Substance use type: does not use Lack of Transportation: No Lack of Food: Sometimes True Current Housing: I Have Housing Concerned About Future Housing: No Difficulty Paying Gas/Electric Bills: No Difficulty Paying for Meds: No Currently Unemployed: No Education: Bachelor's Degree Difficulty w/ Childcare or Family Care: No Living arrangements: with family Gender identity (if verbalized by the patient): Male Spiritual care concerns: No Meds Home Medications and Allergies Home Medications Medication Instructions
[2022-07-11 12:21] VITALS: BP 112/74; PULSE 88; RESP 23; O2SAT 97
[2022-07-11 12:31] VITALS: BP 110/75; PULSE 81; RESP 23; O2SAT 97
[2022-07-11 12:41] VITALS: BP 114/72; PULSE 75; RESP 23; O2SAT 97
== END 2022-07-11 12:55 | disposition home or self-care (01) ==
PROVIDERS: PCP Family Medicine; Visit Provider Internal Medicine Gastroenterology
PROC: 0DJ08ZZ Inspection of Upper Intestinal Tract, Via Natural or Artificial Opening Endoscopic (ICD-10-PCS; CPT 43235; principal; 2022-07-11 12:30)
DX: K21.9 Gastro-esophageal reflux disease without esophagitis (principal); K44.9 Diaphragmatic hernia without obstruction or gangrene; F90.0 Attention-deficit hyperactivity disorder, predominantly inattentive type; E66.9 Obesity, unspecified; Z68.32 Body mass index [BMI] 32.0-32.9, adult; G47.33 Obstructive sleep apnea (adult) (pediatric)
CPT/HCPCS: 43239; 88305; J7120